=== PATIENT | female | born 1995 | race Caucasian/White ===

== ENCOUNTER 2021-12-16 03:06 | Emergency (ER) | payer BC ==
[~2021-12-16] VITALS: Ht 165.1 cm; Wt 65.8 kg
--- NOTE | 2021-12-16 03:23 | NUR ---
WAIVER SIGNED BY PT
--- NOTE | 2021-12-16 03:23 | NUR ---
EMT AT BEDSIDE FOR EKG
--- NOTE | 2021-12-16 03:28 | NUR ---
BIBS. TO ER BED 16. AAOX4. NOT IN RESP DISTRESS, BREATHING EVEN AND UNLABORED. AMBULATORY. CAME IN FOR CHEST TIGHTNESS AND DULL PAIN X 2 WEEKS. SHE REPORTS THAT TODAY HER L ARM STARTED TO GET NUMB. MD WAS AT T HE BEDSIDE. EKG BEING DONE
[2021-12-16 03:39] LABS: BASOPHILS % (AUTO) 0.4 % (0.0-2.0); EOSINOPHILS % (AUTO) 1.4 % (0.0-6.0); HEMATOCRIT 42 % (33-45); HEMOGLOBIN 14.4 g/dL (11.5-14.8); LYMPHOCYTES # (AUTO) 2.2 K/uL (0.8-4.8); LYMPHOCYTES % (AUTO) 28.4 % (20.0-44.0); MEAN CORPUSCULAR HGB CONC 35 g/dl (31.0-36.0); MEAN CORPUSCULAR VOLUME 93 fL (82-100); MONOCYTES # (AUTO) 0.6 K/uL (0.1-1.30); NEUTROPHILS # (AUTO) 4.7 K/uL (1.8-8.9); NEUTROPHILS % (AUTO) 61.8 % (43.0-81.0); PLATELET COUNT (AUTO) 266 K/uL (150-450); RED BLOOD CELL COUNT(AUTO) 4.48 MIL/uL (4.0-5.2); WHITE BLOOD COUNT (AUTO) 7.6 K/uL (4.3-11.0)
[2021-12-16 03:50] LABS: CALCIUM, SERUM 8.9 mg/dL (8.5-10.1); CARBON DIOXIDE 28 mmol/L (21-32); CHLORIDE 105 mmol/L (98-107); CREATININE 0.7 mg/dL (0.6-1.3); GLUCOSE 92 mg/dL (74-106); POTASSIUM 3.4 mmol/L (3.5-5.1); SODIUM SERUM 139 mmol/L (136-145); UREA NITROGEN, BLOOD 10 mg/dL (7-18)
[2021-12-16] MEDS ORDERED: KETO10TA2 PO (04:18)
[2021-12-16 04:30] VITALS: BP 116/89
--- NOTE | 2021-12-16 04:30 | NUR ---
IV removed. Catheter intact and site benign. Pressure and 4x4 applied to site. No bleeding noted.
--- NOTE | 2021-12-16 04:30 | NUR ---
Patient discharged to home in stable condition. Written and verbal after care instructions given. Patient verbalizes understanding of instruction.
== END 2021-12-16 04:38 | disposition home or self-care (01) ==
LOC: ER 03:09
DX: R07.89 Other chest pain (principal); R06.00 Dyspnea, unspecified; Z88.2 Allergy status to sulfonamides
CPT/HCPCS: 36415; 71045-TC; 80048-TC; 84484-TC; 85025-TC; 85378-TC